=== PATIENT | male | born 1985 | race Caucasian/White ===

== ENCOUNTER 2018-10-02 11:51 | Emergency (ER) | payer MEDICAID, SELFPAY ==
[2018-10-02 11:52] VITALS: BP 160/106; PULSE 97; RESP 18; TEMP 36.6; O2SAT 96; BMI 40.1
--- NOTE | 2018-10-02 12:23 | MRI_ITS ---
STUDY: MRI LUMBAR SPINE WITHOUT CONTRAST REASON FOR EXAM: Male, 33 years old. Back pain, bilateral leg pain and radiculopathy. TECHNIQUE: Standardized fat and water weighted pulse sequences were obtained in the sagittal and axial planes. COMPARISON: None FINDINGS: T12-L1: Normal endplates. Normal disc height, hydration and morphology. Normal bilateral facet joints. Normal central canal and bilateral lateral recesses. Normal bilateral intervertebral neural foramina. Normal lumbar lordosis. There is no substantial scoliosis. Normal conus medullaris that terminates at the T12/L1. L1-2: Normal endplates. Normal disc height, hydration and morphology. Normal bilateral facet joints. Normal central canal and bilateral lateral recesses. Normal bilateral intervertebral neural foramina. L2-3: Normal endplates. Normal disc height, hydration and morphology. Normal bilateral facet joints. Normal central canal and bilateral lateral recesses. Normal bilateral intervertebral neural foramina. L3-4: Normal endplates. Normal disc height, hydration and morphology. Normal bilateral facet joints. Normal central canal and bilateral lateral recesses. Normal bilateral intervertebral neural foramina. L4-5: Normal endplates. Normal disc height, hydration and morphology. Normal bilateral facet joints. Normal central canal and bilateral lateral recesses. Normal bilateral intervertebral neural foramina. L5-S1: Normal endplates. Normal disc height, hydration and morphology. Normal bilateral facet joints. Normal central canal and bilateral lateral recesses. Normal bilateral intervertebral neural foramina. Normal visualized sacral ala. Multiple bilateral renal cysts. Mild friction related edema of the posterior subcutaneous fat. MRI/Spine Lumbar (Routine) IMPRESSION: Normal unenhanced MR examination of the lumbar spine. Electronically Signed: Salty Bennett MD at 15:05 EDT Tel , Service support ,
[2018-10-02] MEDS: HYDROmorphone 1 MG/ML Syringe IV (12:41)
[2018-10-02] MEDS: Ondansetron 4 MG/2 ML Vial IV (12:41)
[2018-10-02 12:44] VITALS: BP 176/103; PULSE 89; RESP 14; O2SAT 96
--- NOTE | 2018-10-02 15:31 | ED.DCSUM_ITS ---
- ER Visit Summary Date of Service: 10/02/18 Chief Complaint: [Back pain] History of Present Illness: The patient is a 33 M [emergency room with complaint of back pain that started a week and a half ago. Patient denies any trauma. Patient states the pain, came on gradually. 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 Patient states that he is had intermittent pain shooting down both legs with numbness and tingling to the legs. He had an episode yesterday when he went fishing with his daughter and he picked her up and had severe pain in his back and his right leg went numb and he had a hard time using it he had to use his hands to pick it up and move it to sit down. Patient states that he has had several episodes where he is felt that he would have stool incontinence but did not actually soiled himself. He denies any incontinence of urine. He denies any fevers. He denies illicit drug use. He is never had back issues before. He denies saddle anesthesia.] Physical Examination: [HEENT-PERRLA, EOMI. Cranial nerves II through XII grossly intact. TMs clear. Mucous membranes moist. No adenopathy. Cardiovascular-regular rate and rhythm without murmur or ectopy Lungs-clear to auscultation, chest wall stable without crepitus or subcu emphysema Abdomen-normoactive bowel sounds, soft, nontender, no rebound or rigidity, no peritoneal signs. Back exam-patient has tenderness diffusely about the lumbar spine. There is no erythema or warmth noted. He has negative straight leg raises. Deep tendon reflexes are plus 2 out of 4 bilaterally at the patella and Achilles. Patient has normal 5 extension bilaterally. Extremities-intact ?4, normal range of motion, normal pulses, atraumatic] Test Results: [MRI of the lumbar spine was obtained which was normal] Emergency Department Course and Treatment: [Patient was medicated with Dilaudid and he did have good pain relief with that.] Treatment Plan: [She will be given a prescription for Naprosyn, Flexeril, and [place]. Patient advised to follow-up with his primary care physician within next 5 to 7 days. Is to avoid lifting.] Disposition: [Discharged home in stable condition] Impression: [Back pain] This note was generated with [employer] dictation software. It may contain incorrect words, spelling, and punctuation that were not noted in review of the chart prior to signing ED Disposition - Plan for ED Patient: Referrals: Ingrid Pro [Primary Care Provider] -
--- NOTE | 2018-10-02 15:32 | ED.DEP ---
ED Disposition - Plan for ED Patient: Instructions: ED Sprain Strain Lumbar, ED Neck Back Pain General Prescriptions: Hydrocodone Bitart/Apap 5-325 [[place] 5MG-325MG] 1 tab PO Q4H PRN PRN 2 Days #15 tab PRN Reason: Pain Naproxen [Naprosyn] 500 mg PO BID PRN #20 tab cycloBENZAPRine HCl [Flexeril] 10 mg PO TID PRN #20 tab PRN Reason: Muscle Spasm Referrals: Ingrid Pro [Primary Care Provider] - 5-7 Days
[2018-10-02 15:46] VITALS: BP 146/79; PULSE 76; RESP 14; O2SAT 96
== END 2018-10-02 15:47 | disposition home or self-care (01) ==
PROVIDERS: Emergency Provider Emergency Medicine; Family Provider Family Medicine; PCP Family Medicine
DX: M54.5 Low back pain (principal); Z72.0 Tobacco use
CPT/HCPCS: 72148; 96374; 96375; 99283; A4216; J2405

== ENCOUNTER 2018-10-28 01:03 | Emergency (ER) | payer MEDICAID, SELFPAY ==
[2018-10-28 01:04] VITALS: BP 174/119; PULSE 91; RESP 16; TEMP 36.6; O2SAT 97; BMI 38.2
--- NOTE | 2018-10-28 01:11 | RAD_ITS ---
HISTORY: Injury to back from lifting weights one month ago. Pain radiating from left upper back down the left leg with numbness. 5 views. No comparison imaging of the thoracic spine. Comparison lumbar spine MRI is from October 02, 2018. That study began beginning in the bottom of the T12 vertebral body Findings: Bony alignment is normal. Vertebral body height is normal. Left paraspinous stripe is normal. Descending thoracic aortic margin is normal. A few small anterior enthesophytes. RAD/Thoracic Spine 2 Views IMPRESSION: Normal. at 0204 Reported and signed by: Ryan Benitez MD Electronically Signed: Ryan Benitez MD at 2:03 EDT Tel , Service support ,
[2018-10-28] MEDS: Ketorolac 60 MG/2 ML Vial IM (01:19)
--- NOTE | 2018-10-28 02:09 | ED.VISSUMM ---
- ER Visit Summary Date of Service: 10/28/18 Chief Complaint: Back pain History of Present Illness: The patient is a 33 M who complains of back pain for almost a month. He thinks it started when he was lifting weights while exercising. He has sharp pains in his thoracic and lumbar region. It radiates up the spine. Is worse with movement. Nothing really makes it better. He has numbness and tingling down into his legs. He was seen here in the emergency department and had an MRI of his lumbar spine. This is completely normal. He was given naproxen Flexeril and Vicodin for home. He saw his PCP who ordered him MRIs of the cervical and thoracic spine but he has not gotten those yet. Physical Examination: Vital signs reviewed. HEENT exam unremarkable. Heart is regular rate and rhythm without murmurs. Lungs are clear to auscultation. Abdomen is soft and nontender. Back is tender on the thoracic spinal area. Extremities reveal no edema. Skin exam normal. Neurologic exam normal. Test Results: X-rays of the thoracic spine are normal Emergency Department Course and Treatment: The patient's neurologic exam is normal at this time. He denies any incontinence to me. I do not feel he needs any emergent MRI studies. Patient will be given Toradol here. He has an allergy to prednisone. He has not tried Medrol in the past. I will try this for him at home. He will need to call his doctor for follow-up. Treatment Plan: [] Disposition: Discharge Impression: Thoracic back pain This note was generated with [employer] dictation software. It may contain incorrect words, spelling, and punctuation that were not noted in review of the chart prior to signing ED Disposition - Plan for ED Patient: Referrals: Ingrid Pro [Primary Care Provider] -
--- NOTE | 2018-10-28 02:10 | ED.DEP ---
ED Disposition - Plan for ED Patient: Disposition: Home or Assisted Living Instructions: BACK PAIN (Acute or Chronic) Prescriptions: MethylPREDNISolone DosePak [Medrol DosePak] 4 mg PO UD #1 box Prescription Printed Referrals: Ingrid Pro [Primary Care Provider] -
[2018-10-28 02:19] VITALS: BP 169/98; PULSE 84; RESP 16; O2SAT 98
== END 2018-10-28 02:21 | disposition home or self-care (01) ==
PROVIDERS: Emergency Provider Emergency Medicine; Family Provider Family Medicine; PCP Family Medicine
DX: M54.6 Pain in thoracic spine (principal)
CPT/HCPCS: 72070; 96372; 99282

== ENCOUNTER 2018-11-24 02:50 | Emergency (ER) | payer MEDICAID, SELFPAY ==
[2018-11-24 02:52] VITALS: BP 160/117; PULSE 87; RESP 18; TEMP 36.7; O2SAT 97; BMI 39.2
[2018-11-24] MEDS: Ketorolac 60 MG/2 ML Vial IM (03:29)
[2018-11-24] MEDS: Orphenadrine 60 MG/2 ML Ampul IM (03:31)
--- NOTE | 2018-11-24 04:49 | ED.DCSUM_ITS ---
- ER Visit Summary Date of Service: 11/24/18 Chief Complaint: Muscle spasms History of Present Illness: The patient is a 33 M who presents with muscle spasms. He complains of right thoracic pain. He has been having some back pain. He has had MRIs of his lumbar spine here and an outpatient MRI of his thoracic and cervical spine recently which showed T6-T7 and T7-T8 disc herniations. The pain he is currently having is similar to the spasm that he has been having but more severe. It is all located in the right thoracic region. He states because of the spasm and pain it feels like it is difficult to breathe. Physical Examination: Afebrile blood pressure 160/117 vitals otherwise unremarkable Moist mucous membranes Heart regular rate and rhythm Lungs are clear equal breath sounds no rales rhonchi wheezes Right posterior thoracic/paraspinal thoracic tenderness Abdomen soft Test Results: Not indicated Emergency Department Course and Treatment: Patient was treated with intramuscular Toradol and Norflex with significant improvement of symptoms. He notes that he was taking Flexeril at home which seem to be helping but he is currently out. He was given a new prescription for Flexeril advised to follow- up with his primary care physician. He also has an upcoming appointment with a spine surgeon. Treatment Plan: [] Disposition: Discharge Impression: Back pain This note was generated with [employer] dictation software. It may contain incorrect words, spelling, and punctuation that were not noted in review of the chart prior to signing ED Disposition - Plan for ED Patient: Referrals: Ingrid Pro [Primary Care Provider] -
--- NOTE | 2018-11-24 04:55 | ED.DEP ---
ED Disposition - Plan for ED Patient: Instructions: BACK SPASM, No Trauma Prescriptions: cycloBENZAPRine HCl [Flexeril] 10 mg PO TID PRN #20 tab PRN Reason: Muscle Spasm Prescription Printed Referrals: Ingrid Pro [Primary Care Provider] -
[2018-11-24 05:07] VITALS: RESP 14
== END 2018-11-24 05:07 | disposition home or self-care (01) ==
PROVIDERS: Emergency Provider Emergency Medicine; Family Provider Family Medicine; PCP Family Medicine
DX: M54.6 Pain in thoracic spine (principal)
CPT/HCPCS: 96372; 99282

== ENCOUNTER 2019-01-30 03:44 | Emergency (ER) | payer MEDICAID, SELFPAY ==
[2019-01-30 03:45] VITALS: BP 172/108; PULSE 106; RESP 18; TEMP 36.8; O2SAT 96; BMI 40.9
--- NOTE | 2019-01-30 03:56 | CT_ITS ---
HISTORY: LAKE ADDITIONAL HISTORY: None provided. COMPARISON: None TECHNIQUE: Axial, coronal and sagittal CT images were obtained of the brain without intravenous contrast. Number of images including paperwork: 261. A radiation dose optimization technique was used for this scan. FINDINGS: BRAIN PARENCHYMA: No acute hemorrhage or mass. No definite acute infarct; MRI more sensitive. EXTRA-AXIAL SPACES: No acute hemorrhage. VENTRICULAR SYSTEM: No hydrocephalus. PARANASAL SINUSES AND MASTOIDS: Partial opacification of the right sphenoid sinus. Mucous retention cyst versus polyps in the left maxillary and sphenoid sinuses. ORBITS: Unremarkable imaged extent. SKELETON AND SOFT TISSUES: Calvarium intact. ASPECTS score: Not applicable. CT/Brain/Head without Contrast IMPRESSION: No acute intracranial abnormality. Paranasal sinus disease. Individualized dose optimization techniques were used for this CT. at 0457 Reported and signed by: Rosette Miguel MD Electronically Signed: Rosette Miguel MD at 4:57 EDT Tel , Service support ,
--- NOTE | 2019-01-30 03:57 | ED.VIS.GEN ---
History of Present Illness Chief Complaint: Headache Informant: Patient Onset: Days Context: Gradual Onset Timing: Intermittent Current Severity: Moderate Maximum Severity: Moderate Narrative: The patient presents to the emergency department with multiple complaints. He states that over the past week to 10 days, he has been having intermittent headaches. He describes a pressure sensation on the left side of the scalp. He states it comes in waves. He states when he gets the headaches, he will have difficulty with his memory. He states that twice, he is been driving and has not noticed when he was going. He denies any syncope. He denies any weakness. He states he is currently being worked up for thoracic outlet syndrome. He was also recently prescribed antihypertensives, but has not taken them. He does have a prior history of migraines, but states he has not had one in 10 years. He has been under significant amount of stress lately. Prior similar symptoms: Yes Recent Illness/Hospitalization: No Past Medical History - Allergies and Home Meds Allergies/Adverse Reactions: Allergies prednisone Allergy (Verified 01/30/19 03:52) Other becomes aggressive Primary Care Physician: Ingrid Pro [Primary Care Provider] - Prior records reviewed: Yes Surgical History: no surgical history Smoking Status: Current every day smoker Review of Systems General: Denies: Chills, Fever, Sweats Eyes: Denies: Visual changes - bilaterally, Diplopia ENT: Denies: Rhinorrhea, Sore throat Cardiovascular: Denies: Chest pain, Palpitations Respiratory: Denies: Dyspnea, Cough, Dyspnea on exertion Gastrointestinal: Denies: Abdominal pain, Nausea, Vomiting, Diarrhea, Melena, Hematochezia Genitourinary: Denies: Dysuria, Hematuria, Frequency Musculoskeletal: Denies: Back pain, Extremity Pain Skin: Denies: Rash, Wounds Neurological: Reports: Headache. Denies: Weakness, Numbness Physical Exam Vital Signs/Narrative: Vital Signs Temp Pulse Resp BP Pulse Ox 01/30/19 03:45 98.3 F 106 H 18 172/108 H 96 Inital Vital Signs reviewed: Yes General: Well nourished, Well developed, No Acute Distress Head: Normocephalic, Atraumatic Eyes: Perrl, EOMI ENT: Moist mucous membranes, No rhinorrhea Neck: Supple, Nontender Cardiovascular: Regular rate, Regular rhythm, No murmurs Respiratory: No distress, CTA bilaterally, Chest nontender Abdomen: Soft, Nontender, Nondistended, Normal bowel sounds Back: Nontender, Normal Inspection Extremities: Nontender, No edema Skin: Normal color, No rash Neurological: Alert, Oriented x3, Cranial nerves II-XII grossly intact, Normal Strength, Normal Sensation Psychological: Normal affect, Normal Mood Diagnostic/Tx/Re-eval Clinical Impression(s) from Imaging Studies Brain CT 01/30/19 03:56 IMPRESSION: No acute intracranial abnormality. Paranasal sinus disease. Individualized dose optimization techniques were used for this CT. at 0457 Reported and signed by: Rosette Miguel MD Electronically Signed: Rosette Miguel MD at 4:57 EDT Tel , Service support , Abnormal Lab Results 01/30/19 01/30/19 04:10 04:10 WBC 10.5 RBC 5.24 Hgb 15.5 Hct 46.3 MCV 88.4 MCH 29.6 MCHC 33.5 RDW Std Deviation 41.4 RDW Coeff of [place] 12.6 Plt Count 259 MPV 9.4 Immature Gran % (Auto) 0.500 Neut % (Auto) 64.7 Lymph % (Auto) 26.0 [place] % (Auto) 7.2 Eos % (Auto) 1.2 Baso % (Auto) 0.4 Absolute Neuts (auto) 6.8 Absolute Lymphs (auto) 2.72 Nucleated RBC % 0 Sodium 140 Potassium 3.9 Chloride 108 H Carbon Dioxide 25.0 Anion Gap 7 BUN 14 Creatinine 1.04 Estim Creat Clear Calc 116.31 Est GFR (MDRD) Af Amer 107 Est GFR (MDRD) Non-Af 88 BUN/Creatinine Ratio 13.5 Glucose 133 H Calcium 8.5 - Medical Decision Making The patient presents with intermittent headache. His neurologic exam is reassuring. He is not meningitic. He is not encephalopathic. I do not have a great explanation for his change in cognition that happens, but it does not seem dangerous. He does not describe any focal weakness or focal neurologic symptoms. However, given his headache I did obtain a noncontrast head CT which was unremarkable. This is not the worst headache of his life. He does have a history of migraine. Patient was treated with migraine abortive medications feeling improved. He has been under significant amount of stress lately with his back pain and is actually scheduled for a partial nephrectomy. My suspicion is that this is likely contributing to his symptoms. At this point, I do feel that he is safe for discharge and outpatient follow-up. He is comfortable with this plan of care. Impression 1. Headache ED Disposition - Plan for ED Patient: Instructions: HEADACHE, Unspecified Referrals: Ingrid Pro [Primary Care Provider] -
[2019-01-30] MEDS: DiphenhydrAMINE 50 MG/ML Syringe 25 MG IV (04:07)
[2019-01-30] MEDS: 0.9% Normal Saline 1,000 ML 999 ML IV (04:08)
[2019-01-30] MEDS: proCHLORPERazine 10 MG/2 ML Vial IV (04:08)
[2019-01-30 04:25] LABS: Absolute Lymphocyte Count 2.72 X10^3/uL (0.83-4.51); Absolute Neutrophil Count 6.8 X10^3/uL (2.0-7.7); Basophil# 0.04 X10^3/uL; Basophil% 0.4 % (0-1); Eosinophil# 0.13 X10^3/uL; Eosinophils% 1.2 % (0-5); Hematocrit 46.3 % (40-54); Hemoglobin 15.5 g/dL (13.0-16.5); Lymphocyte # 2.72 X10^3/ul (4.0); Mean Corp Hgb Conc 33.5 g/dL (32-36); Mean Corpuscular Hgb 29.6 pg (27.0-32.0); Mean Corpuscular Volume 88.4 fL (80-94); Mean Platelet Vol. 9.4 fl (6.2-12.0); Monocyte# 0.75 X10^3/uL; Monocyte% 7.2 % (0-10); NRBC Flagged by Analyzer 0 % (0-5); Neutrophil # 6.77 X10^3/uL (2.7-7.7); Neutrophil % 64.7 % (47-70); Platelet Count 259 K/mm3 (150-450); RBC Distribution Width CV 12.6 % (11.6-14.6); RBC Distribution Width SD 41.4 fl (35.1-43.9); Red Blood Count 5.24 M/mm3 (4.6-6.2); White Blood Count 10.5 K/mm3 (4.4-11.0)
[2019-01-30 04:32] LABS: Anion Gap 7 (5-15); BUN 14 mg/dL (7-18); BUN/Creat Ratio 13.5 RATIO (10-20); Calcium,Total 8.5 mg/dL (8.5-10.1); Chloride 108 mmol/L (98-107); Creatinine, Serum 1.04 mg/dL (0.70-1.30); EST Glomerular Filtration Rate 88 mL/min (>60); Est Glom Filt Rate - Afr Amer 107 mL/min (>60); Estimated Creatinine Clearance 116.31 ml/min; Glucose 133 mg/dL (74-106); Potassium 3.9 mmol/L (3.5-5.1); Sodium Level 140 mmol/L (136-145)
[2019-01-30 05:07] VITALS: BP 165/89; PULSE 95; RESP 18; O2SAT 98
== END 2019-01-30 05:09 | disposition home or self-care (01) ==
PROVIDERS: Emergency Provider Emergency Medicine; Family Provider Family Medicine; PCP Family Medicine
DX: R51 Headache (principal); F17.200 Nicotine dependence, unspecified, uncomplicated
CPT/HCPCS: 70450; 80048; 85025; 96361; 96374; 96375; 99283; J7030